=== PATIENT | male | born 1990 | race Caucasian/White ===

== ENCOUNTER 2018-11-02 13:37 | Emergency (ER) | payer SELFPAY ==
[~2018-11-02] VITALS: Ht 175.3 cm; Wt 115.0 kg
[2018-11-02] MEDS ORDERED: LORAZEPAM 1MG TABLET PO ONE (16:15)
[2018-11-02] MEDS ORDERED: MAGNESIUM/ALUMINUM HYDROXIDE/SIMETHICONE 30ML UDC PO ONE (16:15)
[2018-11-02] MEDS ORDERED: ASPIRIN 81MG TABLET PO ONE (16:15)
[2018-11-02] MEDS ORDERED: VISCOUS LIDOCAINE 2% 15 ML UDC PO ONE (16:15)
[2018-11-02 17:00] VITALS: BP 166/98
== END 2018-11-02 17:13 | disposition left against medical advice (07) ==
LOC: ER 13:37
DX: F41.9 Anxiety disorder, unspecified (principal); R07.9 Chest pain, unspecified; M54.6 Pain in thoracic spine
CPT/HCPCS: 93005; 99283